=== PATIENT | female | born 1985 | race Caucasian/White ===

== ENCOUNTER 2021-01-08 00:07 | Emergency (ER) | payer OTHER ==
[~2021-01-08 00:07] MED LIST: BENTYL 20MG TAB20 MG PO; CLEOCIN HCL300 MG PO; MACROBID 100 M100 MG PO; ZOFRAN4 MG PO
== END 2021-01-08 05:14 | disposition home or self-care (01) ==
LOC: ER1 00:07
DX: M25.552 Pain in left hip (principal); F17.200 Nicotine dependence, unspecified, uncomplicated; Z87.39 Personal history of other diseases of the musculoskeletal system and connective tissue; Z88.0 Allergy status to penicillin; Z79.899 Other long term (current) drug therapy; W01.0XXA Fall on same level from slipping, tripping and stumbling without subsequent striking against object, initial encounter; Y92.009 Unspecified place in unspecified non-institutional (private) residence as the place of occurrence of the external cause
CPT/HCPCS: 73502; 73700; 99284